=== PATIENT | male | born 1985 | race Hispanic/Latino ===

== ENCOUNTER 2017-06-01 19:44 | Emergency (ER) | payer SELFPAY ==
[2017-06-01 19:46] VITALS: BMI 23.1
[2017-06-01 19:49] VITALS: O2SAT 99
[2017-06-01] MEDS ORDERED: Sodium Chloride 0.9% 1,000 ML IV STA (19:54)
--- NOTE | 2017-06-01 20:15 | ED PDOC ---
Arrival/HPI - General Chief Complaint: GI Problem Time Seen by Provider: 06/01/17 19:45 Historian: Patient - History of Present Illness Narrative History of Present Illness (Text): 06/01/17 19:57 31 y.o. male who denies any significant PMHx with a surgical history of left leg fractures who comes to the ED with a complaint of n/v/d since this morning. He reports yesterday eating some pizza with mushrooms that had been out for 4 days and then drinking a significant amount of alcohol last night. He says he had a fever of 101 earlier today and took tylenol at 3 pm. His last vomiting was 2 pm earlier today, but the diarrhea is continuing. He also says he feels dizzy and feels tingling around his mouth and fingers. He reports abdominal pain earlier which has resolved. No headache or cp or sob or urinary symptoms. He denies any travel history. Past Medical History - Infectious Disease Hx of Infectious Diseases: None - Psychiatric Hx Substance Use: No - Surgical History Hx Musculoskeletal Surgery: Yes (L leg angelo placement, pelvis fx with screws) - Anesthesia Hx Anesthesia: Yes Hx Anesthesia Reactions: No Family/Social History Family/Social History: No Known Family HX Smoking Status: Light Smoker < 10 Cigarettes Daily Hx Alcohol Use: Yes Frequency of alcohol use: Socially Hx Substance Use: No Allergies/Home Meds Allergies/Adverse Reactions: Allergies No Known Allergies Allergy (Verified 06/01/17 19:46) Review of Systems - Review of Systems Constitutional: Fevers Eyes: Normal ENT: Normal Respiratory: Normal Cardiovascular: Normal Gastrointestinal: Abdominal Pain (resolved), Diarrhea, Nausea, Vomiting Genitourinary Male: Normal Musculoskeletal: Normal Skin: Normal Neurological: Dizziness, Other (parasthesias) Endocrine: Normal Hemo/Lymphatic: Normal Psychiatric: Normal Physical Exam Vital Signs Temp Pulse Resp BP Pulse Ox 06/01/17 21:38 99.4 F 06/01/17 21:33 89 18 118/79 99 06/01/17 19:48 98.0 F 90 19 116/72 99 Temperature: Afebrile Blood Pressure: Normal Pulse: Regular Respiratory Rate: Normal Appearance: Positive for: Well-Appearing, Non-Toxic, Comfortable Pain Distress: None Mental Status: Positive for: Alert and Oriented X 3 - Systems Exam Head: Present: Atraumatic, Normocephalic Pupils: Present: PERRL Conjunctiva: Present: Normal Mouth: Present: Moist Mucous Membranes Pharnyx: Present: Normal. No: ERYTHEMA, EXUDATE Neck: Present: Normal Range of Motion Respiratory/Chest: Present: Clear to Auscultation, Good Air Exchange. No: Respiratory Distress, Accessory Muscle Use Cardiovascular: Present: Regular Rate and Rhythm, Normal S1, S2. No: Murmurs Abdomen: Present: Normal Bowel Sounds. No: Tenderness, Distention, Peritoneal Signs Back: Present: Normal Inspection Upper Extremity: Present: Normal Inspection. No: Cyanosis, Edema Lower Extremity: Present: Normal Inspection. No: Edema Neurological: Present: GCS=15, CN II-XII Intact, Speech Normal Skin: Present: Warm, Dry, Normal Color. No: Rashes Psychiatric: Present: Alert, Oriented x 3, Normal Insight, Normal Concentration Medical Decision Making ED Course and Treatment: 06/01/17 20:18 Patient with n/v/d and benign exam. Differential: gastroenteritis vs gastritis vs pancreatitis vs cholecystitis Plan: - IVF - Labs - Zofran, Pepcid 06/01/17 22:02 Labs with leukocytosis but otherwise unremarkable. Patient is feeling much better with no abd pain or nausea and was able to tolerate po in the ED. Will d /c to f/u pmd or medical clinic. - Lab Interpretations Lab Results: 06/01/17 20:10 06/01/17 20:10 Lab Results 06/01/17 20:10: Sodium 137, Potassium 3.8, Chloride 97 L, Carbon Dioxide 27, Anion Gap 17, BUN 18, Creatinine 0.9, Est GFR ( Amer) > 60, Est GFR (Non- Af Amer) > 60, Random Glucose 98, Calcium 9.8, Total Bilirubin 0.9, AST 43, ALT 48, Alkaline Phosphatase 103, Total Protein 8.1, Albumin 4.7, Globulin 3.4, Albumin/Globulin Ratio 1.4, Lipase 46 06/01/17 20:10: WBC 13.1 H, RBC 4.90, Hgb 15.9, Hct 44.2, MCV 90.2, MCH 32.4, MCHC 36.0, RDW 12.4, Plt Count 220, MPV 10.0, Gran % 92.0 H, Lymph % (Auto) 4.1 L, [place] % (Auto) 3.7, Eos % (Auto) 0.1 L, Baso % (Auto) 0.1, Gran # 12.04 H, Lymph # 0.5 L, [place] # 0.5, Eos # 0.0, Baso # 0.01 - Medication Orders Current Medication Orders: Discontinued Medications Famotidine (Pepcid) 20 mg IVP STAT STA Stop: 06/01/17 19:55 Last Admin: 06/01/17 20:05 Dose: 20 mg Sodium Chloride (Sodium Chloride 0.9%) 1,000 mls @ 999 mls/hr IV .Q1H1M STA Stop: 06/01/17 20:54 Last Admin: 06/01/17 20:05 Dose: 999 mls/hr Ondansetron HCl (Zofran Inj) 4 mg IVP STAT STA Stop: 06/01/17 19:55 Last Admin: 06/01/17 20:05 Dose: 4 mg Disposition/Present on Arrival - Present on Arrival Any Indicators Present on Arrival: No History of DVT/PE: No History of Uncontrolled Diabetes: No Urinary Catheter: No History of Decub. Ulcer: No History Surgical Site Infection Following: None - Disposition Have Diagnosis and Disposition been Completed?: Yes Diagnosis: Nausea, vomiting, and diarrhea Disposition: HOME/ ROUTINE Disposition Time: 22:00 Patient Plan: Discharge Patient Problems: Current Active Problems Problem Status Onset Nausea, vomiting, and diarrhea Acute Condition: GOOD Discharge Instructions (ExitCare): Acute Nausea and Vomiting (ED), Gastroenteritis (ED), Acute Diarrhea (ED) Additional Instructions: Advance diet slowly as tolerated. Avoid alcohol use. You may use the zofran as prescribed for nausea. Follow up in the medical clinic. Return to the emergency department if any new concerning symptoms. Prescriptions: Ondansetron ODT [Zofran ODT] 1 tab PO Q8H PRN #9 odt PRN Reason: Nausea/Vomiting [place] [facility] [place] [facility] [place] - Follow up with primary
[2017-06-01 20:23] LABS: BASO # 0.01 K/mm3 (0.0-2.0); BASO % 0.1 % (0.0-3.0); EOS % 0.1 % (1.5-5.0); GRAN # 12.04 (1.4-6.5); HEMOGLOBIN 15.9 gm/dL (14.0-18.0); LYMPH # 0.5 (1.2-3.4); LYMPH % 4.1 % (22.0-35.0); MEAN CELL VOLUME 90.2 fL (80.0-105.0); MEAN CORPUSCULAR HEMOGLOBIN 32.4 pg (25.0-35.0); MONO # 0.5 (0.1-0.6); MONO % 3.7 % (1.0-6.0); PLATELET COUNT 220 10^3/uL (120.0-450.0); RED CELL DISTRIBUTION WIDTH 12.4 % (11.5-14.5); WHITE BLOOD COUNT 13.1 10^3/ul (4.5-11.0)
[2017-06-01 20:38] LABS: ALB/GLOB RATIO 1.4 (1.1-1.8); ALBUMIN 4.7 g/dL (3.0-4.8); ALT/SGPT 48 U/L (7-56); AST/SGOT 43 U/L (15-59); BLOOD UREA NITROGEN 18 mg/dL (7-21); CALCIUM 9.8 mg/dL (8.4-10.5); GFR AFRICAN-AMERICAN > 60; GFR NON-AFRICAN AMERICAN > 60; LIPASE 46 U/L (23-300)
[2017-06-01 21:34] VITALS: BP 118/79; PULSE 89; RESP 18
[2017-06-01 21:38] VITALS: TEMP 99.4
== END 2017-06-01 22:18 | disposition home or self-care (01) ==
LOC: ED 19:44
DX: R11.2 Nausea with vomiting, unspecified (principal); R19.7 Diarrhea, unspecified
CPT/HCPCS: 80053; 83690; 85025; 96361; 96374; 96375; 99285; J2405; J7040

== ENCOUNTER 2018-06-20 11:24 | Emergency (ER) | payer MEDICAID ==
[2018-06-20 11:59] VITALS: BMI 23.8
[2018-06-20 12:01] VITALS: BP 115/66; PULSE 54; RESP 18; TEMP 98.2; O2SAT 96
--- NOTE | 2018-06-20 12:26 | ED PDOC ---
Arrival/HPI - General Chief Complaint: Upper Extremity Problem/Injury Time Seen by Provider: 06/20/18 12:19 Historian: Patient - History of Present Illness Narrative History of Present Illness (Text): 06/20/18 12:20 32 y/o male, no significant pmh, nkda, c/o rt. hand itching rash/swelling and pain x 3 days. Pt. stated that he was bitten by [place] about 3 days ago, been having itching and swelling, no difficulty bending or extending the rt. hand 5 digits, no numbness or tingling, no fever or chills, no fatigue or muscle ache, no other medical or psychological complaints. Past Medical History - Provider Review Nursing Documentation Reviewed: Yes - Infectious Disease Hx of Infectious Diseases: None - Psychiatric Hx Substance Use: No - Surgical History Hx Musculoskeletal Surgery: Yes (L leg angelo placement, pelvis fx with screws) - Anesthesia Hx Anesthesia: Yes Hx Anesthesia Reactions: No Family/Social History - Physician Review Nursing Documentation Reviewed: Yes Family/Social History: Unknown Family HX Smoking Status: Light Smoker < 10 Cigarettes Daily Hx Alcohol Use: Yes Hx Substance Use: No Allergies/Home Meds Allergies/Adverse Reactions: Allergies No Known Allergies Allergy (Verified 06/01/17 19:46) Review of Systems - Review of Systems Constitutional: absent: Fatigue, Fevers Eyes: absent: Vision Changes ENT: absent: Hearing Changes Respiratory: absent: SOB, Cough Cardiovascular: absent: Chest Pain Gastrointestinal: absent: Abdominal Pain, Nausea, Vomiting Skin: Rash, Pruritis, Skin Lesions, Cellulitis. absent: Laceration, Abscess, Ulcer Neurological: absent: Headache, Dizziness Psychiatric: absent: Anxiety, Depression, Suicidal Ideation Physical Exam Vital Signs Reviewed: Yes Vital Signs Temp Pulse Resp BP Pulse Ox 06/20/18 12:00 98.2 F 54 L 18 115/66 96 Temperature: Afebrile Blood Pressure: Normal Pulse: Bradycardic Respiratory Rate: Normal Appearance: Positive for: Well-Appearing, Non-Toxic, Comfortable Pain Distress: Mild Mental Status: Positive for: Alert and Oriented X 3 - Systems Exam Head: Present: Atraumatic, Normocephalic Pupils: Present: PERRL Extroacular Muscles: Present: EOMI Conjunctiva: Present: Normal Mouth: Present: Moist Mucous Membranes Neck: Present: Normal Range of Motion Respiratory/Chest: Present: Clear to Auscultation, Good Air Exchange. No: Respiratory Distress, Accessory Muscle Use Cardiovascular: Present: Regular Rate and Rhythm, Normal S1, S2. No: Murmurs Abdomen: No: Tenderness, Distention, Peritoneal Signs Back: Present: Normal Inspection Upper Extremity: Present: Normal Inspection, Other (Rt. hand: visible central insect bite maricurz over the dorsum hand especially over the 4th and 5th dorsal metacarpal region with mild swelling, no streaking, no ulcers, no bullseye or target signs, FROM without limitation, sensation intact, motor 5/5, +radial pulse, capillary refill< 2 seconds, neurovascular intact. ). No: Cyanosis, Edema Lower Extremity: Present: Normal Inspection. No: Edema Neurological: Present: GCS=15, CN II-XII Intact, Speech Normal Skin: Present: Warm, Dry, Normal Color. No: Rashes Psychiatric: Present: Alert, Oriented x 3, Normal Insight, Normal Concentration Medical Decision Making ED Course and Treatment: 06/20/18 12:27 -Discharge home with keflex, zyrtec, topical steroid cream, take tylenol or motrin at home, follow up with your own pmd within 2 days, return to the ER for any new or worsening signs or symptoms. - PA / SOLE LEVELER / Resident Statement MD/DO has reviewed & agrees with the documentation as recorded. Disposition/Present on Arrival - Present on Arrival Any Indicators Present on Arrival: No History of DVT/PE: No History of Uncontrolled Diabetes: No Urinary Catheter: No History of Decub. Ulcer: No History Surgical Site Infection Following: None - Disposition Have Diagnosis and Disposition been Completed?: Yes Diagnosis: Insect bite, Cellulitis Disposition: HOME/ ROUTINE Disposition Time: 12:28 Patient Plan: Discharge Condition: GOOD Discharge Instructions (ExitCare): Cellulitis (ED) Additional Instructions: -Discharge home with keflex, zyrtec, topical steroid cream, take tylenol or motrin at home, follow up with your own pmd within 2 days, return to the ER for any new or worsening signs or symptoms. Prescriptions: Cephalexin [Keflex] 500 mg PO TID #21 capsule Cetirizine HCl [Zyrtec] 10 mg PO DAILY #10 tab.rapdis Triamcinolone 0.025 % [Triamcinolone 0.025 % Cream] 1 appl TOP BID #30 g Referrals: [facility] [Outside] - Follow up with primary [facility] [Outside] - Follow up with primary Forms: WORK NOTE
== END 2018-06-20 12:55 | disposition home or self-care (01) ==
LOC: ED 11:24
DX: S60.561A Insect bite (nonvenomous) of right hand, initial encounter (principal); W57.XXXA Bitten or stung by nonvenomous insect and other nonvenomous arthropods, initial encounter; F17.210 Nicotine dependence, cigarettes, uncomplicated